=== PATIENT | female | born 1950 | race Hispanic/Latino ===

== ENCOUNTER → 2017-08-18 | Outpatient (CLI) | payer OTHER | LOC: OIH 10:55 | PROVIDERS: ATTEND Family Medicine | DX: M25.562 Pain in left knee (principal); M25.561 Pain in right knee | CPT/HCPCS: 73560 ==

== ENCOUNTER → 2019-09-14 | Outpatient (CLI) | payer OTHER | END | disposition home or self-care (01) | LOC: RAH 09:17 | PROVIDERS: ATTEND Family Medicine | DX: K42.9 Umbilical hernia without obstruction or gangrene (principal); K76.0 Fatty (change of) liver, not elsewhere classified; N13.30 Unspecified hydronephrosis | CPT/HCPCS: 76700 ==

== ENCOUNTER → 2020-05-14 | Outpatient (CLI) | payer OTHER | END | disposition home or self-care (01) | LOC: OIH 08:24 | PROVIDERS: ATTEND Family Medicine | DX: M19.011 Primary osteoarthritis, right shoulder (principal); M25.511 Pain in right shoulder | CPT/HCPCS: 73030 ==

== ENCOUNTER → 2020-08-22 | Outpatient (CLI) | payer OTHER | END | disposition home or self-care (01) | LOC: OIH 07:57 | PROVIDERS: ATTEND Family Medicine | DX: I10 Essential (primary) hypertension (principal) | CPT/HCPCS: 71046 ==

== ENCOUNTER → 2022-06-26 | Outpatient (CLI) | payer OTHER | END | disposition home or self-care (01) | LOC: RAH 10:04 | PROVIDERS: ATTEND Physical Medicine & Rehabilitation | DX: M19.012 Primary osteoarthritis, left shoulder (principal); M19.011 Primary osteoarthritis, right shoulder; M54.2 Cervicalgia; M25.511 Pain in right shoulder; M75.40 Impingement syndrome of unspecified shoulder; M25.512 Pain in left shoulder | CPT/HCPCS: 72050; 73030 ==

== ENCOUNTER 2024-11-23 05:46 | Observation (INO) | payer OTHER, MEDICAID ==
[2024-11-21 10:39] LABS: BASOPHILS # (AUTO) 0.04 K/uL (0.00-0.20); BASOPHILS % (AUTO) 0.4 % (0.0-5.0); EOSINOPHILS # (AUTO) 0.14 K/uL (0.00-0.70); EOSINOPHILS % (AUTO) 1.5 % (0.0-8.0); IMMATURE GRANULOCYTE ABSOLUTE 0.02 K/uL (0-1); LYMPHOCYTES # (AUTO) 2.8 K/uL (1.0-4.8); LYMPHOCYTES % (AUTO) 29.9 % (21.0-51.0); MEAN CORPUSCULAR HEMOGLOBIN 29.5 pg (27.0-33.0); MEAN CORPUSCULAR HGB CONC 32.7 g/dL (32.0-36.0); MEAN CORPUSCULAR VOLUME 90.1 fL (79-99); MONOCYTES # (AUTO) 0.5 K/uL (0.1-1.0); MONOCYTES % (AUTO) 5.8 % (3.0-13.0); NEUTROPHILS # (AUTO) 5.8 K/uL (1.8-7.7); NEUTROPHILS % (AUTO) 62.2 % (40.0-77.0); PLATELET COUNT (AUTO) 279 K/uL (130-400); RED BLOOD CELL COUNT(AUTO) 4.55 MIL/uL (4.00-5.50); RED CELL DISTRIBUTION WIDTH 13.1 % (11.0-15.5); WHITE BLOOD COUNT (AUTO) 9.4 K/uL (4.8-10.8)
[2024-11-21 10:42] LABS: APPEARANCE,URINE CLEAR (CLEAR); BILIRUBIN,URINE NEGATIVE (NEGATIVE); COLOR,URINE LIGHT-YELLOW (YELLOW); GLUCOSE, URINE (UA) NEGATIVE (NEGATIVE); KETONES,URINE NEGATIVE (NEGATIVE); LEUKOCYTE ESTERASE ,URINE NEGATIVE Leu/uL (NEGATIVE); NITRATE,URINE NEGATIVE (NEGATIVE); OCCULT BLOOD,URINE NEGATIVE (NEGATIVE); PH,URINE 5.5 (5.0-8.0); PROTEIN,URINE NEGATIVE (NEGATIVE); UROBILINOGEN,URINE 0.2 mg/dL (0.2-1.0)
[2024-11-21 10:47] LABS: ADD UA MICROSCOPIC NO
--- NOTE | 2024-11-21 11:00 | NUR ---
preop INCENTIVE SPIROMETRY TEACHING DONE BY KRISTA MENA
[2024-11-21 11:05] VITALS: BP 167/73; PULSE 74; RESP 18; TEMP 97.8
--- NOTE | 2024-11-21 11:46 | NUR ---
REPORT DR JOHNSON INFORMED LAST DOSE FOR CILOSTAZOL 11/19/24 0730 AND IBUPROFEN 11/20/24 1600. OK TO PROCEED
[~2024-11-23] VITALS: Ht 165.1 cm; Wt 92.1 kg
[2024-11-23] VITALS (29 sets, daily range): BP systolic 109–159; BP diastolic 57–77; PULSE 59–106; RESP 16–19; TEMP 97.6–98.7; O2SAT 96–99
[~2024-11-23 05:46] MED LIST: CILO50TA2 PO; GLIP5TAB15 PO; IBUP-2077 PO; INSU3INS3 SQ; METF-446 PO; ROSU10TA72 PO; SEMA7TAB2 PO
[2024-11-23] MEDS: 0.9%NACL 1000ML 1,000 ML IV ONE (06:11)
[2024-11-23] MEDS ORDERED: ROPivacaine 0.5% 5MG/ML 30ML ONE (06:42)
[2024-11-23] MEDS ORDERED: ketaMINE 50MG/ML SYRINGE 50 MG/ML DISP.SYRIN ONE (06:42)
[2024-11-23] MEDS ORDERED: LIDOCAINE PF 100MG/5ML (2%) SYRINGE 5ML ONE (06:49)
[2024-11-23] MEDS ORDERED: proPOFol 10 MG/ML 20ML VIAL IV ONE (06:50)
[2024-11-23] MEDS ORDERED: rocuRONium bROMide 10MG/1ML 5ML VL ONE (06:50)
[2024-11-23] MEDS ORDERED: FENTanyl CITRate PF 50 MCG/1 ML 2ML VIAL ONE (06:50)
[2024-11-23] MEDS ORDERED: CYCLOBENZAPRINE HCL 10 MG TABLET PO PRN (07:30)
[2024-11-23] MEDS: INSULIN humuLIN R 100 UNIT/ML 3ML SQ SCH (07:30)
[2024-11-23] MEDS: 0.9%NACL 1000ML 1,000 ML IV SCH (07:30)
[2024-11-23] MEDS ORDERED: PoTASSium chloRIDE 20MEQ/100ML 100 ML IV PRN (07:30)
[2024-11-23] MEDS ORDERED: traMADol HCL 50 MG TABLET PO PRN (07:30)
[2024-11-23] MEDS ORDERED: HYDROcodone/APAP 5/325 1 TAB TABLET PO PRN ×2 (07:30→08:30)
[2024-11-23] MEDS ORDERED: PoTASSium chl 10% ELIXIR 20MEQ 20 MEQ/15 ML UDCUP PO PRN (07:30)
[2024-11-23] MEDS ORDERED: PoTASSium chloRIDE 20MEQ ER 20 MEQ ERTAB PO PRN (07:30)
[2024-11-23] MEDS ORDERED: ondanSETRON 4MG INJ IVP PRN (07:30)
[2024-11-23] MEDS ORDERED: CALCIUM CARB 500MG PO PRN (07:30)
[2024-11-23] MEDS ORDERED: FERROUS FUMARATE 324 MG TABLET PO PRN (07:30)
[2024-11-23] MEDS: TRANEXAMIC ACID 1000MG/10ML ONE (07:45)
[2024-11-23] MEDS: ceFAZolin SODIUM 2 GM VIAL ONE ×2 (07:55→11:24)
[2024-11-23] MEDS ORDERED: ondanSETRON 4MG INJ ONE (08:12)
[2024-11-23] MEDS ORDERED: dexaMETHasone SOD PHOSPHATE 10MG/ML 1ML VIAL ONE (08:12)
[2024-11-23] MEDS: ROPivacaine 0.5% 5MG/ML 30ML ONE (08:30)
[2024-11-23] MEDS: ketOROlac 30MG VIAL (30MG/ML) ONE (08:30)
[2024-11-23] MEDS ORDERED: GLYCOPYRROLATE 0.2 MG/ML 5 ML VIAL ONE (08:58)
[2024-11-23] MEDS ORDERED: NEOSTIGMINE METHYLSULFATE 1MG/ML IV ONE (08:58)
[2024-11-23] MEDS: FENTanyl CITRate PF 50 MCG/1 ML 2ML VIAL ONE ×2 (09:57→10:09)
[2024-11-23] MEDS: ketOROlac 15MG/ML VIAL (15MG/ML) ONE (10:08)
[2024-11-23] MEDS: ketOROlac 15MG/ML VIAL (15MG/ML) IV SCH ×2 (10:08→18:24)
[2024-11-23] MEDS: FAMOTIDINE 20MG VIAL IV ONE (10:51)
[2024-11-23] MEDS: acetaMINOPHEN 100 ML ONE (10:51)
[2024-11-23] MEDS: GABAPENTIN 300 MG CAPSULE ONE (10:51)
[2024-11-23] MEDS: metFORmin HCL 500 MG TABLET PO SCH (11:08)
[2024-11-23] MEDS: glipiZIDE 5MG TABLET PO SCH (11:08)
[2024-11-23] MEDS: doCUSate SODIUM 100 MG CAP PO SCH (11:08)
[2024-11-23] MEDS: atorVAStatin 40 MG TABLET PO SCH (11:09)
[2024-11-23] MEDS: ceFAZolin SODIUM 2 GM VIAL IVPB SCH (11:09)
[2024-11-23] MEDS: polyETHYLene GLYCol 3350 17 GM POWD.PACK PO SCH (11:09)
[2024-11-23] MEDS: GABApentin 100 MG CAPSULE PO SCH (11:09)
--- NOTE | 2024-11-23 11:19 | HMCIMG ---
KNEE/PATELLA 1-2VWS LT HISTORY: Left total knee arthroplasty COMPARISON: None TECHNIQUE: 2 images of left knee were obtained. FINDINGS: Total left knee arthroplasty changes are seen. There are soft tissue swelling and soft tissue emphysema. There is no acute displaced fracture or dislocation. Degenerative changes are seen. IMPRESSION: 1. Findings as described above.
--- NOTE | 2024-11-23 11:43 | OP ---
Operative Note: DATE OF PROCEDURE: 11/23/24 PREOPERATIVE DIAGNOSIS: Left knee osteoarthritis. POSTOPERATIVE DIAGNOSIS: Left knee osteoarthritis. PROCEDURE PERFORMED: Left knee total knee arthroplasty. SURGEON: Sanna Kumar MD FRIT MIXER AND BURNER: Juan C Estrada and Mariama Rae. ANESTHESIA: General with adductor canal block. ANESTHESIA: RAMONE Anderson. ESTIMATED BLOOD LOSS: 50cc. COMPLICATIONS: None. DRAINS: None. SPECIMENS REMOVED: resected bone. Not sent to pathology. IMPLANTS: [employer]hew Journey II BCS size 5 Oxinium femur, size 4 tibial base plate, 32 x 7.5 mm patella, 10 mm polyethylene STATEMENT OF MEDICAL NECESSITY: The patient is a 73-year-old female who suffers from left knee osteoarthritis failing conservative management. After discussion of the risks, benefits, and alternatives with the patient, they voluntarily agreed to undergo the aforementioned procedure. DESCRIPTION OF PROCEDURE: Patient was properly identified in the preoperative holding area. Surgical site marking was verified and surgery consent reviewed. The patient was then taken to the operating room and placed in supine position on the OR table. After induction of general anesthesia, preoperative antibiotics were given, all bony prominences were well-padded, and a well padded tourniquet was applied but not inflated at this time. The left lower extremity was then prepped and draped in usual sterile fashion. Surgical time out was done verifying correct surgery, side, site, and location to be performed. We then began the procedure by exsanguinating the limb using an Esmarch and inflating the tourniquet to 350 mmHg. At this point, we made an anterior midline incision using a 10 blade, coming down sharply the level of the fascia. Skin flaps were elevated medially and laterally. We then obtained a clean 10 blade and performed a standard medial parapatellar arthrotomy. We excised the infrapatellar fat pad. We performed our soft tissue releases off of the tibia. We transected the ACL and removed the anterior portion of the medial & lateral meniscus. We then brought the knee into hyperflexion with the patella everted. We used our entry reamer to enter the femoral canal. We then placed our intramedullary cutting guide for our distal femoral cutting block. We then performed our distal femoral osteotomy ensuring appropriate rotation and removed the bony wafer. We then removed these pins and block and then used jig 2 to size the distal femur with the after mentioned size found. We then placed our 5-in-1 cutting block in 4 degrees of external rotation and took our 5 cuts ensuring to protect the patellar tendon and the collateral ligaments. We then removed the cutting block and our bony fragments using a curved osteotome. We then placed our PCL retractor subluxating the tibia anteriorly. Using an extra medullary tibial cutting guide, we hung the block for our proximal tibial cut taking 2 mm off the more diseased portion. Prior to pinning this block in place, we ensured appropriate varus/valgus alignment and posterior slope similar to the tulalip slope of the patient's knee. We then performed our proximal tibial osteotomy and removed the bony wafer using Bovie electrocautery to release any remaining soft tissue attachments. We then used our tibial sizing paddle and checked once more for varus & valgus alignment and found this to be appropriate. At this point, we pinned our tibial paddle in place. We then removed the PCL retractor and subluxated the tibia posteriorly while we placed our femoral trial component. We then finished preparing the notch with the reamer and box chisel. The notch portion of the trial femoral component was then placed. A posterior stabilized polyethylene, size 9 trial was placed. The knee was then taken through range of motion and found to have stable full range of motion. We then placed a bump under the ankle and everted the patella to perform our freehand cut of the undersurface the patella. We then sized our patella and reamed to the lug holes for this. We placed our trial patellar component and begin to take the knee through range of motion. The patella had appropriate tracking. At this point we began removing our trial components and punched the tibial keel prior to removing our tibial trial component. Final components were opened and cement was mixed on the back table while we injected local cocktail in the posterior capsule. We then thoroughly irrigated out the bone and dried the bony surfaces. We cemented our tibial component in place ensuring to remove excess cement and placed our trial polyethylene. We then cemented our femoral component in place once again taking time to ensure excess cement was removed leg was brought into full extension to help squeeze the excess cement from around the femoral component. We then brought the knee back in a flexion to remove this portion of the cement at this point we placed the ankle in a bump thoroughly irrigated off the patellar component and cemented our patellar component in standard fashion again removing excess cement. While we waited for the cement to cure, we thoroughly irrigated out the wound with normal saline. Once our cement had cured, we took the knee through a range of motion and found full and stable range of motion. We then elected to use the size 10 polyethylene and removed our trial polyethylene. We impacted our final polyethylene component in place in standard fashion and took the knee through a range of motion check once more. This was satisfactory so we began to repair the arthrotomy using #1 Vicryl in interrupted abxtin-cu-okvuj fashion. Subcutaneous tissue was repaired using 2-0 Vicryl. Running subcuticular 3-0 Monocryl stitch with Dermabond placed over this for the skin. We then applied a foam barrier dressing and a pressure dressing consisting of 4 x 4's fluffs and an Ruben wrap. The tourniquet was then deflated. Patient was awakened from anest hesia, and they were taken to the recovery room in stable condition. SANNA KUMAR MD Nov 23, 2024 11:43
--- NOTE | 2024-11-23 11:45 | DS ---
Discharge Summary Hospital Course Summary: The patient was admitted to the hospital postoperatively on 11/23/2024 after undergoing left total knee arthroplasty. They did well with routine postoperative pain control. They worked well with physical therapy. They developed some acute blood loss anemia but remained asymptomatic. The hospital course was otherwise uncomplicated. They were subsequently able to be discharged on postoperative day 3 once discharge arrangements were made with SNF. In School Suspension Coordinator(s): None Procedure(s): Left total knee arthroplasty, 11/23/2024 Assessment/Plan: No acute distress, alert and oriented x3 Nonlabored breathing Resting comfortably supine in bed. Lower extremity with the calf soft and nontender. Negative Homans. Moderate amount of edema with mild erythema medially. Normal amount of warmth for postoperative total knee. Small area of the incision distally leaking. Dermabond we applied over this area. Patient is able to get closer to full extension with manipulation but still has significant tightness in the hamstrings. Attempts at flexion with her lying in bed she only achieves 30 compared to 65 sitting in the chair yesterday. ASSESSMENT: Status post left total knee arthroplasty Acute blood loss anemia PLAN: See discharge instructions Discharge Instructions: Begin working with physical therapy at the facility. Dressing may be removed 11/25/2024 and left open to air. Showers ok allowing soap and water to run over the wound. Pat dry. Do not submerge wound in tub/pool. Do not apply ointments. Do not apply Betadine. Do not apply peroxide. Ice packs to decrease pain/swelling. Prescriptions have been sent to the pharmacy: *[place] 5/325mg 1-2 tab every 6 hours as needed for severe pain. (please call for refills) Cyclobenzaprine 5mg 1 tab every 8 hours as needed for muscle spasm pain. Gabapentin 100mg 1 tab every 8 hours (may discontinue if drowsy). Colace 100mg 1 tab orally twice a day as needed for constipation. Resume your cilostazol and aspirin to prevent blood clots. Follow up appointment on 12/15/2024 at 9:00am at [facility]. Home Medications: Active Scripts Hydrocodone/Acetaminophen (Hydrocodon-Acetaminophen 5-325) 5 Mg-325 Mg Tablet, 1-2 TAB PO Q6HPRN PRN for MODERATE PAIN (4-6), #56 TAB 0 Refills Prov:LELAND JOHNSON MD 11/26/24 Reported Medications Metformin HCl (Metformin HCl) 1,000 Mg Tablet, 1000 MG PO BID, TAB 11/21/24 Insulin Glargine,Hum.rec.anlog (Lantus Solostar) 100 Unit/Ml (3 Ml) Insuln.pen, 48 UNIT SQ HS, SYRINGE 11/21/24 Ibuprofen (Ibuprofen 800 mg Tab) 800 Mg Tab, 800 MG PO AD PRN for PAIN, TAB 11/21/24 Cilostazol (Cilostazol) 50 Mg Tablet, 50 MG PO BID, TAB 11/21/24 Glipizide (Glipizide) 5 Mg Tablet, 5 MG PO BID, TAB 11/21/24 Rosuvastatin Calcium (Rosuvastatin Calcium) 10 Mg Tablet, 10 MG PO AM, TAB 11/21/24 Semaglutide (Rybelsus) 7 Mg Tablet, 7 MG PO AM, TAB 11/21/24 LELAND JOHNSON MD Nov 23, 2024 11:45
--- NOTE | 2024-11-23 12:15 | NUR ---
PT anjel completed. Patient noted with c/o nausea with mobility, BP's were WFL's no significant drop. Patient began with dry heaves but not vomiting anything up. Nurse, Nell, made aware. Patient agreed to sit up in chair and was able to take transition steps to chair. PT team to follow. Addendum: 11/23/24 at 1556 by NILS ADAMS PT Amended: Links added.
--- NOTE | 2024-11-23 15:25 | NUR ---
[facility] CM SPOKE TO PT INITIAL ASSESSMENT DONE. PATIENT IS INDEPENDENT PRIOR TO SURGERY, LIVES AT HOME WITH HER SPOUSE. DENIES ANY EQUIPMENT/SERVICES. FEELS SAFE TO GO BACK HOME, SPOUSE AND SON ABLE TO ASSIST WITH TRANSPORTATION AND NEEDS NECESSARY. TELEPHONE CONSENT JEYSON OBTAINED FOR ANY IN NETWORK HOME HEALTH & DME PRIOR TO SURGERY. [facility] HOME W/HH AND DME ONCE APPROVED. CM TO CONTINUE TO FOLLOW UP. Addendum: 11/23/24 at 1528 by EMMETT CEDENO LVN CM Amended: Links added.
[2024-11-23] MEDS: INSULIN GLARgine 100 UNITS/ML 10 ML VIAL SQ SCH (20:56)
[2024-11-24] VITALS (7 sets, daily range): BP systolic 105–113; BP diastolic 56–66; PULSE 72–86; RESP 18; TEMP 98.2–98.8; O2SAT 97–99
[2024-11-24 03:49] LABS: MEAN CORPUSCULAR HGB CONC 33.7 g/dL (32.0-36.0); RED BLOOD CELL COUNT(AUTO) 3.37 MIL/uL (4.00-5.50); RED CELL DISTRIBUTION WIDTH 13.2 % (11.0-15.5)
[2024-11-24 04:01] LABS: CREATININE 0.6 mg/dL (0.5-1.0); POTASSIUM 3.8 mmol/L (3.5-5.1)
[2024-11-24] MEDS: HYDROcodone/APAP 5/325 1 TAB TABLET PO PRN (05:23)
--- NOTE | 2024-11-24 08:11 | PN ---
Ortho postop day one. This morning patient is awake alert and oriented. Reporting adequate pain control. She is seated out of bed in a chair alternating extension and flexion. I have removed the Ruben bandage. The dressing is intact. She has ice present to the anterior joint. Gastrocnemius soft nontender. Vital signs have remained stable. Afebrile. Laboratory results reviewed. Noted to have a drop in hemoglobin and hematocrit as expected after TKA. Patient is asymptomatic and we will address per protocol as necessary. Reinforced incentive spirometry. Currently does not have SCD sleeves on but are present. Ambulated within the confines of her room yesterday and is pending further physical therapy this morning. Operative findings discussed with the patient. Anticipated discharge goal is home health/PT. Assessment: Status post left total knee arthroplasty. Asymptomatic acute postoperative blood loss anemia. Plan: Continue Dr. Kumar's TKA protocol and discharge planning. Asymptomatic acute postoperative blood loss anemia addressed with protocol as necessary Vitals/Labs Vital Signs Date Time Temp Pulse Resp B/P (MAP) Pulse Ox O2 Delivery O2 Flow Rate FiO2 11/24/24 06:46 86 18 N/A Room Air 21 11/24/24 04:10 98.4 113/56 98 11/24/24 04:05 0 Laboratory Tests 11/24/24 03:31 Medications Current Medications Cefazolin Sodium 2 gm STK-MED ONCE .ROUTE Last administered on 11/23/24at 07:55; Start 11/23/24 at 06:11; Stop 11/23/24 at 06:12; Status DC Sodium Chloride 1,000 ml @ As Directed STK-MED ONCE IV; Start 11/23/24 at 06:11; Stop 11/23/24 at 06:12; Status DC Gabapentin 300 mg STK-MED ONCE .ROUTE; Start 11/23/24 at 06:28; Stop 11/23/24 at 06:29; Status DC Acetaminophen 100 ml @ As Directed STK-MED ONCE .ROUTE; Start 11/23/24 at 06:28; Stop 11/23/24 at 06:29; Status DC Famotidine 20 mg STK-MED ONCE IV; Start 11/23/24 at 06:29; Stop 11/23/24 at 06:29; Status DC Ropivacaine 150 mg STK-MED ONCE .ROUTE; Start 11/23/24 at 06:42; Stop 11/23/24 at 06:42; Status DC Ketamine HCl 50 mg STK-MED ONCE .ROUTE; Start 11/23/24 at 06:42; Stop 11/23/24 at 06:42; Status DC Lidocaine HCl 100 mg STK-MED ONCE .ROUTE; Start 11/23/24 at 06:49; Stop 11/23/24 at 06:49; Status DC Propofol 200 mg STK-MED ONCE IV; Start 11/23/24 at 06:50; Stop 11/23/24 at 06:50; Status DC Rocuronium [place] 50 mg STK-MED ONCE .ROUTE; Start 11/23/24 at 06:50; Stop 11/23/24 at 06:50; Status DC Fentanyl Citrate 100 mcg STK-MED ONCE .ROUTE; Start 11/23/24 at 06:50; Stop 11/23/24 at 06:51; Status DC Tranexamic Acid 1,000 mg STK-MED ONCE .ROUTE Last administered on 11/23/24at 07:45; Start 11/23/24 at 07:16; Stop 11/23/24 at 07:17; Status DC Ketorolac Tromethamine 30 mg STK-MED ONCE .ROUTE Last administered on 11/23/24at 08:30; Start 11/23/24 at 07:25; Stop 11/23/24 at 07:26; Status DC Ropivacaine 150 mg STK-MED ONCE .ROUTE Last administered on 11/23/24at 08:30; Start 11/23/24 at 07:26; Stop 11/23/24 at 07:26; Status DC Sodium Chloride 1,000 ml @ 100 mls/hr Q10H IV Last administered on 11/23/24at 17:52; Start 11/23/24 at 07:30; Stop 11/24/24 at 07:29; Status DC Polyethylene Glycol 17 gm DAILY PO Last administered on 11/23/24at 11:09; Start 11/23/24 at 09:00; Stop 12/23/24 at 08:59 Bisacodyl 10 mg DAILY PRN RC; Start 11/26/24 at 07:30; Stop 12/26/24 at 07:29 Ketorolac Tromethamine 15 mg Q6H PRN IV; Start 11/24/24 at 10:00; Stop 11/29/24 at 09:59 Ferrous Fumarate 324 mg DAILY PRN PO; Start 11/23/24 at 07:30; Stop 12/23/24 at 07:29 Ondansetron HCl 4 mg Q6H PRN IVP; Start 11/23/24 at 07:30; Stop 12/23/24 at 07:29 Calcium Carbonate 500 mg Q12H PRN PO; Start 11/23/24 at 07:30; Stop 12/23/24 at 07:29 Insulin Human Regular INSULIN SLIDING SCAL... ACHS SQ Last administered on 11/23/24at 20:56; Start 11/23/24 at 07:30; Stop 12/23/24 at 07:29 Cefazolin Sodium 2 gm Q8H IVPB Last administered on 11/23/24at 20:54; Start 11/23/24 at 12:30; Stop 11/23/24 at 20:31; Status DC Cyclobenzaprine HCl 5 mg Q8H PRN PO; Start 11/23/24 at 07:30; Stop 12/23/24 at 07:29 Gabapentin 100 mg TID PO Last administered on 11/23/24at 20:55; Start 11/23/24 at 09:00; Stop 12/23/24 at 08:59 Aspirin 325 mg DAILY PO; Start 11/24/24 at 09:00; Stop 12/24/24 at 08:59 Ketorolac Tromethamine 15 mg Q8H IV Last administered on 11/23/24at 10:08; Start 11/23/24 at 07:30; Stop 11/23/24 at 17:27; Status DC Docusate Sodium 100 mg BID PO Last administered on 11/23/24at 20:54; Start 11/23/24 at 09:00; Stop 12/23/24 at 08:59 Potassium Chloride 100 ml @ 100 mls/hr AD PRN IV; Start 11/23/24 at 07:30; Stop 12/23/24 at 07:29 Potassium Chloride 20 meq AD PRN PO; Start 11/23/24 at 07:30; Stop 12/23/24 at 07:29 Potassium Chloride 20 meq AD PRN PO; Start 11/23/24 at 07:30; Stop 12/23/24 at 07:29 Tramadol HCl 50 mg Q6H PRN PO; Start 11/23/24 at 07:30; Stop 11/28/24 at 07:29 Acetaminophen/ Hydrocodone Bitart Q4H PRN PO; Start 11/23/24 at 07:30; Stop 11/23/24 at 08:03; Status DC Glipizide 5 mg BID PO Last administered on 11/23/24at 20:54; Start 11/23/24 at 09:00; Stop 12/23/24 at 08:59 Insulin Glargine 48 units HS SQ Last administered on 11/23/24at 20:56; Start 11/23/24 at 21:00; Stop 12/23/24 at 20:59 Metformin HCl 1,000 mg BIDMEALS PO Last administered on 11/23/24at 17:27; Start 11/23/24 at 08:00; Stop 12/23/24 at 07:59 Atorvastatin Calcium 40 mg AM PO Last administered on 11/23/24at 11:09; Start 11/23/24 at 09:00; Stop 12/23/24 at 08:59 Home Med (Semaglutide (Rybelsus) 7 MG) DAILY PO; Start 11/23/24 at 09:00; Stop 12/23/24 at 08:59 Acetaminophen/ Hydrocodone Bitart 1 tab Q4H PRN PO; Start 11/23/24 at 08:30; Stop 11/28/24 at 08:29 Acetaminophen/ Hydrocodone Bitart 2 tab Q4H PRN PO Last administered on 11/24/24at 05:23; Start 11/23/24 at 08:30; Stop 11/28/24 at 08:29 Ondansetron HCl 4 mg STK-MED ONCE .ROUTE; Start 11/23/24 at 08:12; Stop 11/23/24 at 08:13; Status DC Dexamethasone Sodium Phosphate 10 mg STK-MED ONCE .ROUTE; Start 11/23/24 at 08:12; Stop 11/23/24 at 08:13; Status DC Glycopyrrolate 1 mg STK-MED ONCE .ROUTE; Start 11/23/24 at 08:58; Stop 11/23/24 at 08:59; Status DC Neostigmine Methylsulfate 10 mg STK-MED ONCE IV; Start 11/23/24 at 08:58; Stop 11/23/24 at 08:59; Status DC Fentanyl Citrate 100 mcg STK-MED ONCE .ROUTE Last administered on 11/23/24at 09:57; Start 11/23/24 at 09:47; Stop 11/23/24 at 09:47; Status DC Ketorolac Tromethamine 15 mg STK-MED ONCE .ROUTE; Start 11/23/24 at 10:01; Stop 11/23/24 at 10:02; Status DC Fentanyl Citrate 100 mcg STK-MED ONCE .ROUTE Last administered on 11/23/24at 10:09; Start 11/23/24 at 10:04; Stop 11/23/24 at 10:05; Status DC Cefazolin Sodium 2 gm STK-MED ONCE .ROUTE; Start 11/23/24 at 11:06; Stop 11/23/24 at 11:07; Status DC Ketorolac Tromethamine 15 mg Q8H IV Last administered on 11/23/24at 18:24; Start 11/23/24 at 18:00; Stop 11/24/24 at 02:01; Status DC TENZIN VERA NP Nov 24, 2024 08:11
[2024-11-24] MEDS: ASPIRIN 325MG EC TAB PO SCH (09:57)
--- NOTE | 2024-11-24 15:05 | NUR ---
ORTHO COORDINATOR: PATIENT IN BED, AT BEDSIDE. [facility] SPEAKING ONLY, NO HOSPTIAL AUTOMOBILE LEASING SUPERVISOR AVAILABLE. INCENTIVE SPIROMETER ON BEDSIDE TRAY, PATIENT ABLE TO VERBALIZE FREQUENCY OF USE. B SCD SLEEVES IN PLACE AND FUNCTIONING. PATIENT DRESSED IN STREET CLOTHES. PATIENT REPORTS CURRENT PAIN 01/08. REPORT TO PRIMARY NURSE REGARDING PAIN LEVEL. PRIMARY NURSE ACKNOWLEDGED COMMUNICATION.
[2024-11-24] MEDS: ketOROlac 15MG/ML VIAL (15MG/ML) IV PRN (21:42)
[2024-11-25] VITALS (8 sets, daily range): BP systolic 112–143; BP diastolic 60–82; PULSE 65–85; RESP 16–20; TEMP 98.3–100.1; O2SAT 96
--- NOTE | 2024-11-25 13:30 | NUR ---
ORTHO COORDINATOR: PATIENT UP TO CHAIR, NO HOSPITAL VTC TECHNICIAN AVAILABLE. DRESSING DRY AND INTACT. B SCD SLEEVE AND MACHINE IN ROOM. PATIENT REPORTS RECEIVING PAIN MEDS. PHYSICAL THERAPY ARRIVED AT BEDSIDE.
--- NOTE | 2024-11-25 14:24 | NUR ---
SNF Auth Escalation Emailed: Bonnie Ulloa RN <[email or web address]>; Laly Ambrose NP <[email or web address]>; Alvaro Persaud <[email or web address]>; Jacy Lucero RN <[email or web address]>; [email or web address]; [email or web address]; Sonya Payne <[email or web address]>; Kalyn Mcneal <[email or web address]>; [email or web address]; Leigh Ann [email or web address] RN <[email or web address]>; [email or web address]; Paulo Vasquez ([facility]) <[email or web address]>; [email or web address] and provided patient's name, , and Policy number. Email stated, "[facility] team, Patient below is pending auth to [facility] and is POD #2 from an elective TJR. Patient is ready to discharge once auth is received. @Paulo Vasquez ([facility]) is the CM and [email or web address] is the clinical liaison if any additional information is needed."
--- NOTE | 2024-11-25 14:40 | PN ---
Postop day two Patient reports doing well. pain controlled with medications. Tolerating diet. Demonstrates IS with good return Vital signs stable, afebrile No acute distress, alert and oriented x3 Sitting upright in chair at bedside Nonlabored breathing Left lower extremity -moderate edema, mild erythema and warmth within the normal limits -Surgical dressing clean dry and intact -dressing is removed incision is noted to be clean intact with small areas with serosanguineous drainage -calf soft nontender -patient is sitting holding leg at 60 flexion. Extension is lacking 20. I can push her down to within 10 Anticipated discharge is to [facility] once accepted Ambulated with physical therapy 60 ft yesterday Postop day two status post left total knee arthroplasty doing well Acute blood loss anemia, asymptomatic -continue my routine postoperative management of pain constipation and physical therapy -continue discharge planning, patient may be transferred once accepted -I discussed with the patient the importance of stretching her hamstrings and trying to hold the stretch for 10 seconds Vitals/Labs Vital Signs Date Time Temp Pulse Resp B/P (MAP) Pulse Ox O2 Delivery O2 Flow Rate FiO2 11/25/24 11:33 99.1 84 16 121/62 96 Room Air 11/24/24 20:00 0 21 Medications Current Medications Cefazolin Sodium 2 gm STK-MED ONCE .ROUTE Last administered on 11/23/24at 07:55; Start 11/23/24 at 06:11; Stop 11/23/24 at 06:12; Status DC Sodium Chloride 1,000 ml @ As Directed STK-MED ONCE IV; Start 11/23/24 at 06:11; Stop 11/23/24 at 06:12; Status DC Gabapentin 300 mg STK-MED ONCE .ROUTE; Start 11/23/24 at 06:28; Stop 11/23/24 at 06:29; Status DC Acetaminophen 100 ml @ As Directed STK-MED ONCE .ROUTE; Start 11/23/24 at 06:28; Stop 11/23/24 at 06:29; Status DC Famotidine 20 mg STK-MED ONCE IV; Start 11/23/24 at 06:29; Stop 11/23/24 at 06:29; Status DC Ropivacaine 150 mg STK-MED ONCE .ROUTE; Start 11/23/24 at 06:42; Stop 11/23/24 at 06:42; Status DC Ketamine HCl 50 mg STK-MED ONCE .ROUTE; Start 11/23/24 at 06:42; Stop 11/23/24 at 06:42; Status DC Lidocaine HCl 100 mg STK-MED ONCE .ROUTE; Start 11/23/24 at 06:49; Stop 11/23/24 at 06:49; Status DC Propofol 200 mg STK-MED ONCE IV; Start 11/23/24 at 06:50; Stop 11/23/24 at 06:50; Status DC Rocuronium [place] 50 mg STK-MED ONCE .ROUTE; Start 11/23/24 at 06:50; Stop 11/23/24 at 06:50; Status DC Fentanyl Citrate 100 mcg STK-MED ONCE .ROUTE; Start 11/23/24 at 06:50; Stop 11/23/24 at 06:51; Status DC Tranexamic Acid 1,000 mg STK-MED ONCE .ROUTE Last administered on 11/23/24at 07:45; Start 11/23/24 at 07:16; Stop 11/23/24 at 07:17; Status DC Ketorolac Tromethamine 30 mg STK-MED ONCE .ROUTE Last administered on 11/23/24at 08:30; Start 11/23/24 at 07:25; Stop 11/23/24 at 07:26; Status DC Ropivacaine 150 mg STK-MED ONCE .ROUTE Last administered on 11/23/24at 08:30; St art 11/23/24 at 07:26; Stop 11/23/24 at 07:26; Status DC Sodium Chloride 1,000 ml @ 100 mls/hr Q10H IV Last administered on 11/23/24at 17:52; Start 11/23/24 at 07:30; Stop 11/24/24 at 07:29; Status DC Polyethylene Glycol 17 gm DAILY PO Last administered on 11/25/24at 09:01; Start 11/23/24 at 09:00; Stop 12/23/24 at 08:59 Bisacodyl 10 mg DAILY PRN RC; Start 11/26/24 at 07:30; Stop 12/26/24 at 07:29 Ketorolac Tromethamine 15 mg Q6H PRN IV Last administered on 11/25/24at 05:11; Start 11/24/24 at 10:00; Stop 11/29/24 at 09:59 Ferrous Fumarate 324 mg DAILY PRN PO; Start 11/23/24 at 07:30; Stop 12/23/24 at 07:29 Ondansetron HCl 4 mg Q6H PRN IVP; Start 11/23/24 at 07:30; Stop 12/23/24 at 07:29 Calcium Carbonate 500 mg Q12H PRN PO; Start 11/23/24 at 07:30; Stop 12/23/24 at 07:29 Insulin Human Regular INSULIN SLIDING SCAL... ACHS SQ Last administered on 11/24/24at 12:15; Start 11/23/24 at 07:30; Stop 12/23/24 at 07:29 Cefazolin Sodium 2 gm Q8H IVPB Last administered on 11/23/24at 20:54; Start 11/23/24 at 12:30; Stop 11/23/24 at 20:31; Status DC Cyclobenzaprine HCl 5 mg Q8H PRN PO; Start 11/23/24 at 07:30; Stop 12/23/24 at 07:29 Gabapentin 100 mg TID PO Last administered on 11/25/24at 09:01; Start 11/23/24 at 09:00; Stop 12/23/24 at 08:59 Aspirin 325 mg DAILY PO Last administered on 11/25/24at 09:01; Start 11/24/24 at 09:00; Stop 12/24/24 at 08:59 Ketorolac Tromethamine 15 mg Q8H IV Last administered on 11/23/24at 10:08; Start 11/23/24 at 07:30; Stop 11/23/24 at 17:27; Status DC Docusate Sodium 100 mg BID PO Last administered on 11/25/24at 09:00; Start 11/23/24 at 09:00; Stop 12/23/24 at 08:59 Potassium Chloride 100 ml @ 100 mls/hr AD PRN IV; Start 11/23/24 at 07:30; Stop 12/23/24 at 07:29 Potassium Chloride 20 meq AD PRN PO; Start 11/23/24 at 07:30; Stop 12/23/24 at 07:29 Potassium Chloride 20 meq AD PRN PO; Start 11/23/24 at 07:30; Stop 12/23/24 at 07:29 Tramadol HCl 50 mg Q6H PRN PO; Start 11/23/24 at 07:30; Stop 11/28/24 at 07:29 Acetaminophen/ Hydrocodone Bitart Q4H PRN PO; Start 11/23/24 at 07:30; Stop 11/23/24 at 08:03; Status DC Glipizide 5 mg BID PO Last administered on 11/25/24at 09:01; Start 11/23/24 at 09:00; Stop 12/23/24 at 08:59 Insulin Glargine 48 units HS SQ Last administered on 11/24/24at 20:20; Start 11/23/24 at 21:00; Stop 12/23/24 at 20:59 Metformin HCl 1,000 mg BIDMEALS PO Last administered on 11/25/24at 09:00; Start 11/23/24 at 08:00; Stop 12/23/24 at 07:59 Atorvastatin Calcium 40 mg AM PO Last administered on 11/25/24at 09:00; Start 11/23/24 at 09:00; Stop 12/23/24 at 08:59 Home Med (Semaglutide (Rybelsus) 7 MG) DAILY PO; Start 11/23/24 at 09:00; Stop 12/23/24 at 08:59 Acetaminophen/ Hydrocodone Bitart 1 tab Q4H PRN PO; Start 11/23/24 at 08:30; Stop 11/28/24 at 08:29 Acetaminophen/ Hydrocodone Bitart 2 tab Q4H PRN PO Last administered on 11/25/24at 13:09; Start 11/23/24 at 08:30; Stop 11/28/24 at 08:29 Ondansetron HCl 4 mg STK-MED ONCE .ROUTE; Start 11/23/24 at 08:12; Stop 11/23/24 at 08:13; Status DC Dexamethasone Sodium Phosphate 10 mg STK-MED ONCE .ROUTE; Start 11/23/24 at 08:12; Stop 11/23/24 at 08:13; Status DC Glycopyrrolate 1 mg STK-MED ONCE .ROUTE; Start 11/23/24 at 08:58; Stop 11/23/24 at 08:59; Status DC Neostigmine Methylsulfate 10 mg STK-MED ONCE IV; Start 11/23/24 at 08:58; Stop 11/23/24 at 08:59; Status DC Fentanyl Citrate 100 mcg STK-MED ONCE .ROUTE Last administered on 11/23/24at 09:57; Start 11/23/24 at 09:47; Stop 11/23/24 at 09:47; Status DC Ketorolac Tromethamine 15 mg STK-MED ONCE .ROUTE; Start 11/23/24 at 10:01; Stop 11/23/24 at 10:02; Status DC Fentanyl Citrate 100 mcg STK-MED ONCE .ROUTE Last administered on 11/23/24at 10:09; Start 11/23/24 at 10:04; Stop 11/23/24 at 10:05; Status DC Cefazolin Sodium 2 gm STK-MED ONCE .ROUTE; Start 11/23/24 at 11:06; Stop 11/23/24 at 11:07; Status DC Ketorolac Tromethamine 15 mg Q8H IV Last administered on 11/23/24at 18:24; Start 11/23/24 at 18:00; Stop 11/24/24 at 02:01; Status DC LELAND JOHNSON MD Nov 25, 2024 14:40
--- NOTE | 2024-11-25 17:38 | NUR ---
[facility] Auth and Acceptance Ed[facility]ta with [facility] states they have auth and can acceptance today. Left message for Dr. Kumar.
[2024-11-26 00:16] VITALS: BP 119/64; PULSE 81; RESP 17; TEMP 98.9
[2024-11-26 04:00] VITALS: BP 118/56; PULSE 81; RESP 18; TEMP 98.3
[2024-11-26] MEDS ORDERED: BisaCODYL 10 MG SUPP.RECT RC PRN (07:30)
[2024-11-26 08:00] VITALS: BP 129/64; PULSE 80; RESP 18; TEMP 98.6; O2SAT 98
[2024-11-26 12:00] VITALS: BP 114/62; PULSE 61; RESP 18; TEMP 98.3
[2024-11-26] MEDS ORDERED: DOCU-116 PO (15:54)
[2024-11-26] MEDS ORDERED: GABA100C PO (15:54)
[2024-11-26] MEDS ORDERED: HYDR-4060 PO (15:54)
[2024-11-26] MEDS ORDERED: CYCL-309 PO (15:54)
[2024-11-26 16:00] VITALS: BP 119/65; PULSE 81; RESP 18; TEMP 98.5
--- NOTE | 2024-11-26 18:34 | NUR ---
DC INSTRUCTIONS PROVIDED TO PATIENT ,PATIENT VERBALIZED UNDERSTANDING REPORT GIVEN TO JOSE DENNISON. NO SIGNS OF BLEEDING ROM INCISION SITE . OPEN TO AIR WITH NEW DERMABOND PLACED BY DR JOHNSON . PERDAL PULSES PRESENT ,CAPILLARY REFILL LESS THAN 3 SEC
--- NOTE | 2024-11-26 19:17 | NUR ---
TRANSPORTATION FROM [facility] ARRIVED AT 1905 . PATIENT VITALS STABLE . PATIENT TRANSPORTED BY TELEPHONE SERVICE ADVISER TO FACILITY. AT BEDSIDE
== END 2024-11-26 19:04 ==
LOC: DAH 05:46 → DAHIP 05:47 → 4AH 10:40
PROVIDERS: ADMIT Student in an Organized Health Care Education/Training Program; ATTEND Student in an Organized Health Care Education/Training Program
DX: M17.12 Unilateral primary osteoarthritis, left knee (principal); M25.562 Pain in left knee; M23.8X2 Other internal derangements of left knee; D62 Acute posthemorrhagic anemia; I10 Essential (primary) hypertension; E11.9 Type 2 diabetes mellitus without complications; E03.9 Hypothyroidism, unspecified; E78.5 Hyperlipidemia, unspecified; E66.9 Obesity, unspecified; Z79.899 Other long term (current) drug therapy; Z98.890 Other specified postprocedural states
CPT/HCPCS: 85025; 87086; 84134; 86140; 81003; 36415 ×2; 87641; 27447; 96376 ×3; 96365; 96366; 96375; 82948 ×16; 73560; 97161; 97116 ×7; 97530 ×6; 80048; 85027; J1815 ×4; G0378 ×83; A4223 ×2; A4663; J3490 ×5; J3010 ×3; J1100; J7030; J2003; J2704; J2405 ×2; J1885 ×5; J2710; J2795 ×2; J0690 ×3; C1713 ×2; C1776 ×2; A4649 ×2; A4930 ×2; A6255; A5120; A4215; A4213; A4222; A4221; A4216; A4600